=== PATIENT | female | born 1960 | race Caucasian/White ===

== ENCOUNTER 2017-07-23 19:28 | Emergency (ER) | payer BC ==
[~2017-07-23] VITALS: Ht 162.6 cm; Wt 64.7 kg
[~2017-07-23 19:28] MED LIST: ANUSOL1 SUPP PR
[2017-07-23 20:55] LABS: HEMATOCRIT 43.7 % (36.0-46.0); HEMOGLOBIN 14.9 G/DL (11.9-15.5); MCHC 34.1 G/DL (30.0-36.0); MCV 88.1 FL (83-99); PLATELET COUNT 184 K/uL (156-360); RBC DIS.WIDTH-CV 12.2 % (11.8-14.6); RBC DIS.WIDTH-SD 39.4 % (39-53); RED BLOOD COUNT 4.96 M/uL (3.80-5.20); WHITE BLOOD COUNT 6.3 K/uL (4.1-10.2)
[2017-07-23 21:04] LABS: APPEARANCE CLEAR ((CLEAR)); BILIRUBIN NEGATIVE; BLOOD NEGATIVE; COLOR STRAW ((YELLOW)); GLUCOSE (STRIP) NEGATIVE; KETONES NEGATIVE; LEUKOCYTES NEGATIVE; NITRITE NEGATIVE; PROTEIN (STRIP) NEGATIVE; SPECIFIC GRAVITY 1.005 (1.000-1.030); UCUL ADDED? NO; UROBILINOGEN 0.2 MG/DL (0.2-1.0)
[2017-07-23 21:07] LABS: ALBUMIN 4.6 g/dL (3.2-4.8); CHLORIDE 107 mEq/L (99-109); POTASSIUM 4.1 mEq/L (3.7-5.4); SODIUM 143 mEq/L (136-147)
[2017-07-23 21:09] LABS: GLUCOSE 89 mg/dL (70-99)
[2017-07-23 21:11] LABS: TOTAL BILIRUBIN 0.4 mg/dL (0.0-1.0)
[2017-07-23 21:13] LABS: ALKALINE PHOSPHATASE 67 IU/L (3-129); CREATININE 0.8 mg/dL (0.6-1.3); GFR ESTIMATE (CALCULATED) > 59 mL/min/
[2017-07-23 21:14] LABS: AST (GOT) 18 IU/L (2-34); UREA NITROGEN (BUN) 9 mg/dL (9-23)
[2017-07-23 21:16] LABS: ALT (GPT) 24 IU/L (3-49)
[2017-07-23 21:17] LABS: QUANTITATIVE HCG < 4.0 MIU/ML
[2017-07-23 22:15] LABS: LIPASE 23 U/L (1.0-51.0)
[2017-07-23 23:35] VITALS: BP 139/88
== END 2017-07-23 23:45 | disposition home or self-care (01) ==
LOC: EXP 19:28 → EME 19:28 → EXP 23:45
DX: R10.11 Right upper quadrant pain (principal); M54.5 Low back pain; J45.909 Unspecified asthma, uncomplicated; F17.200 Nicotine dependence, unspecified, uncomplicated; Z88.5 Allergy status to narcotic agent; Z88.0 Allergy status to penicillin
CPT/HCPCS: 76705; 80053; 81003; 83690; 84702; 85027